=== PATIENT | female | born 1955 | race African-American/Black ===

== ENCOUNTER 2016-08-21 15:09 | Emergency (ER) | payer BC ==
[~2016-08-21] VITALS: Ht 149.9 cm; Wt 81.0 kg
[~2016-08-21 15:09] MED LIST: FLEXERIL10 MG PO; ULTRAM50 MG PO
[2016-08-21] MEDS ORDERED: LISINOPRIL10 MG PO (17:37)
[2016-08-21 17:44] VITALS: BP 140/98
== END 2016-08-21 17:50 | disposition home or self-care (01) ==
LOC: EME 15:09
DX: J32.9 Chronic sinusitis, unspecified (principal); I10 Essential (primary) hypertension; R05 Cough; M54.2 Cervicalgia; F17.200 Nicotine dependence, unspecified, uncomplicated
CPT/HCPCS: 99281; 99284

== ENCOUNTER 2016-12-29 22:26 | Emergency (ER) | payer BC ==
[~2016-12-29] VITALS: Ht 149.9 cm; Wt 80.3 kg
[~2016-12-29 22:26] MED LIST changes: +LISINOPRIL10 MG PO
[2016-12-29 23:07] VITALS: BP 146/75
[2016-12-30 01:16] LABS: EOSINOPHIL COUNT 0.2 K/uL (0-0.3); HEMATOCRIT 42.7 % (36.0-46.0); IMMATURE GRANULOCYTE (%) 0.5 % (0.0-0.7); IMMATURE GRANULOCYTE COUNT 0.1 K/uL; INSTRUMENT ABS NEUTROPHIL CT 7.4 K/uL; LYMPHOCYTE COUNT 2.9 K/uL (1.0-2.8); MCH 32.5 PG (29.0-34.0); MCHC 33.3 G/DL (30.0-36.0); MCV 97.7 FL (83-99); MEAN PLAT.VOLUME 10.8 uM^3 (9.5-12.4); MONOCYTE (%) 5.8 % (3-12); MONOCYTE COUNT 0.7 K/uL (0-0.8); NEUTROPHIL (%) 65.8 % (45-76); NEUTROPHIL COUNT 7.4 K/uL (1.8-6.4); PLATELET COUNT 272 K/uL (156-360); RBC DIS.WIDTH-CV 11.8 % (11.8-14.6); RED BLOOD COUNT 4.37 M/uL (3.80-5.20); WHITE BLOOD COUNT 11.2 K/uL (4.1-10.2)
[2016-12-30 01:23] LABS: CHLORIDE 106 mEq/L (99-109)
[2016-12-30 01:24] LABS: POTASSIUM 3.5 mEq/L (3.7-5.4); SODIUM 138 mEq/L (136-147)
[2016-12-30 01:25] LABS: GLUCOSE 96 mg/dL (70-99)
[2016-12-30 01:27] LABS: ANION GAP 8 MEQ/L (2-14)
[2016-12-30 01:29] LABS: GFR ESTIMATE (CALCULATED) > 59 mL/min/
[2016-12-30 01:30] LABS: UREA NITROGEN (BUN) 6 mg/dL (9-23)
[2016-12-30] MEDS ORDERED: PEPCID20 MG PO (02:42)
== END 2016-12-30 03:38 | disposition home or self-care (01) ==
LOC: EME 22:26
PROVIDERS: Emergency Medicine
DX: L50.9 Urticaria, unspecified (principal); F17.200 Nicotine dependence, unspecified, uncomplicated
CPT/HCPCS: 80048; 85025; 99281; 99284